=== PATIENT | female | born 1975 | race Caucasian/White ===

== ENCOUNTER 2018-03-18 11:15 | Emergency (ER) | payer MEDICARE, MEDICAID ==
[~2018-03-18] VITALS: Ht 170.2 cm; Wt 80.4 kg
[2018-03-18 11:19] VITALS: BP 118/79
[2018-03-18] MEDS ORDERED: ketorolac trometh inj. 60 MG/2 ML VIAL IM ONE (11:35)
[2018-03-18] MEDS ORDERED: orphenadrine citrate 60mg/2ml inj. IM ONE (11:35)
[2018-03-18] MEDS ORDERED: CYCL-1 PO (11:57)
== END 2018-03-18 12:16 | disposition home or self-care (01) ==
LOC: ER 11:17
DX: M54.5 Low back pain (principal); G89.29 Other chronic pain; Z88.7 Allergy status to serum and vaccine
CPT/HCPCS: 72100; 96372; 99284; J1885; J2360